=== PATIENT | female | born 1990 | race Caucasian/White ===

== ENCOUNTER → 2016-05-29 | Outpatient (CLI) | payer OTHER, MEDICAID ==
[~2016-05-29] MED LIST: ALPR0.25 PO; DOCU100C37 PO; FLUO40CA12 PO; IBUP-1780 PO; IPRA4AER IH; IRON18TA PO; ONDN4T PO; OXYC-465 PO; PREN1TAB86 PO; SULF-222 PO
--- OUTSIDE RECORDS SUMMARY | 2016-05-29 15:30 | XMS REPORT | Continuity of Care Document ---
Author Author [facility] Address Unknown Phone Unavailable Allergies Active Description Code Type Severity Reaction Onset Reported/Identified Relationship to Patient Clinical Status Yes No Known Drug Allergies [id number] Drug Allergy Unknown N/ A 02/13/2013 Medications Problems Date Dx Coded Attending Type Code Diagnosis Diagnosed By 02/12/2012 THAI DAMON MD 465.9 UPPER RESPIRATORY INFECTION 02/12/2012 THAI DAMON MD 787.01 nausea with vomiting 02/12/2012 GEMMA GEE DO 465.9 UPPER RESPIRATORY INFECTION 02/12/2012 GEMMA GEE DO 787.01 nausea with vomiting 02/12/2012 GEMMA GEE DO 465.9 UPPER RESPIRATORY INFECTION 02/12/2012 GEMMA GEE DO 787.01 nausea with vomiting 02/13/2013 LUIS ARMANDO [employer] [employer] Ot 599.0 URIN TRACT INFECTION NOS 02/13/2013 LUIS ARMANDO [place] [employer] Ot 787.01 NAUSEA WITH VOMITING 08/12/2013 GEMMA GEE DO 729.5 PAIN IN LIMB 07/06/2015 RICHMOND CROSS DONT L Ot 789.01 ABDOMINAL PAIN, RIGHT UPPER QUADRANT 07/06/2015 COSENS KENNY FLORIAN L Ot 807.00 FRACTURE RIB NOS-CLOSED 07/06/2015 COSENS KENNY FLORIAN L Ot E928.9 ACCIDENT NOS 07/09/2015 SIVAKUMAR CALDERÓN MD Ot O28.8 OTHER ABNORMAL FINDINGS ON SCR 07/11/2015 COSENS DO FLORIAN L Ot 789.01 ABDOMINAL PAIN, RIGHT UPPER QUADRANT 07/11/2015 COSENS DO FLORIAN L Ot 807.00 FRACTURE RIB NOS-CLOSED 07/11/2015 COSENS DO FLORIAN L Ot E928.9 ACCIDENT NOS 07/11/2015 SIVAKUMAR CALDERÓN MD Ot O28.8 OTHER ABNORMAL FINDINGS ON SCR 07/13/2015 SIVAKUMAR CALDERÓN MD Ot J45.909 UNSPECIFIED ASTHMA, UNCOMPLICATED 07/13/2015 SIVAKUMAR CALDERÓN MD, Ot O13.3 GESTATIONAL HTN W/O SIGNIFICANT PROTEINU 07/13/2015 SIVAKUMAR CALDERÓN MD, Ot O24.410 GESTATIONAL DIABETES MELLITUS IN PREGNAN 07/13/2015 SIVAKUMAR CALDERÓN MD, Ot O32.3XX0 MATERNAL CARE FOR FACE, BROW AND CHIN IA 07/13/2015 SIVAKUMAR CALDERÓN MD, Ot O62.2 OTHER UTERINE INERTIA 07/13/2015 SIVAKUMAR CALDERÓN MD, Ot O99.52 DISEASES OF THE RESPIRATORY SYSTEM COMPL 07/13/2015 SIVAKUMAR CALDERÓN MD, Ot Z37.0 SINGLE LIVE 07/13/2015 SIVAKUMAR CALDERÓN MD, Ot Z3A.38 38 WEEKS GESTATION OF 07/18/2015 SIVAKUMAR CALDERÓN MD, Ot O28.8 OTHER ABNORMAL FINDINGS ON SCR Procedures Code [place] [address] XRAY ANKLE L, 2 VIEW 08/12/2013 87936 XRAY FOOT LEFT COMP MIN 3 VIEWS 08/12/2013 [id number] 07/11/2015 [id number] 07/11/2015 Results Encounters ACCT No. Visit Date/Time Discharge Status Pt. Type Provider Facility Loc./Unit Complaint [id number] 08/12/2013 08:15:00 08/12/2013 23: 59:59 CLS Outpatient GEMMA GEE DO [id number] 07/06/2013 16:11:00 07/06/2013 23: 59:59 CLS Outpatient GEMMA GEE DO [id number] 02/12/2012 10:59:00 02/12/2012 23: 59:59 CLS Outpatient MARISOL FONTAINE, THAI
[2016-05-29 15:55] LABS: PROTEIN/CREATININE RATIO 0.28
== END ==
LOC: WSo 15:27
PROVIDERS: ATTEND Obstetrics & Gynecology
DX: O14.03 Mild to moderate pre-eclampsia, third trimester (principal)
CPT/HCPCS: 82570; 84156

== ENCOUNTER → 2016-06-12 | Outpatient (CLI) | payer OTHER, MEDICAID ==
[2016-06-12 14:59] LABS: PROTEIN/CREATININE RATIO 0.24
== END ==
LOC: LAB 14:28
PROVIDERS: ATTEND Obstetrics & Gynecology
DX: O28.8 Other abnormal findings on antenatal screening of mother (principal)
CPT/HCPCS: 82570; 84156

== ENCOUNTER → 2016-06-19 | Outpatient (CLI) | payer OTHER, MEDICAID ==
[2016-06-19 15:59] LABS: PROTEIN/CREATININE RATIO 0.18
== END ==
LOC: LABNPT 14:38
PROVIDERS: ATTEND Obstetrics & Gynecology
DX: O28.8 Other abnormal findings on antenatal screening of mother (principal)
CPT/HCPCS: 82570; 84156

== ENCOUNTER 2016-06-23 14:47 | Inpatient (IN) | payer OTHER, MEDICAID ==
[~2016-06-23] VITALS: Ht 167.6 cm; Wt 97.2 kg
[~2016-06-23 14:47] MED LIST changes: -ALPR0.25 PO; -FLUO40CA12 PO; -IRON18TA PO
[2016-06-23 15:43] LABS: BASOPHILS # (AUTO) 0.1 10^3/uL (0.0-0.1); BASOPHILS % (AUTO) 0 % (0-10); EOSINOPHILS # (AUTO) 0.1 10^3/uL (0.0-0.3); EOSINOPHILS % (AUTO) 1 % (0-10); LYMPHOCYTES # (AUTO) 2.1 X 10^3 (1.0-4.0); LYMPHOCYTES % (AUTO) 18 % (12-44); MEAN CORPUSCULAR HEMOGLOBIN 22 PG (25-34); MEAN CORPUSCULAR HGB CONC 31 G/DL (32-36); MEAN CORPUSCULAR VOLUME 73 FL (80-99); MEAN PLATELET VOLUME 10.4 FL (7.4-10.4); MONOCYTES # (AUTO) 1.1 X 10^3 (0.0-1.0); MONOCYTES % (AUTO) 9 % (0-12); NEUTROPHILS # (AUTO) 8.5 X 10^3 (1.8-7.8); NEUTROPHILS % (AUTO) 72 % (42-75); PLATELET COUNT 303 10^3/uL (130-400); RED BLOOD COUNT 4.29 10^6/uL (4.35-5.85); RED CELL DISTRIBUTION WIDTH 17.3 % (10.0-14.5); WHITE BLOOD COUNT 11.8 10^3/uL (4.3-11.0)
[2016-06-23] MEDS ORDERED: METOCLOPRAMIDE INJ 10 MG/2 ML (REGLAN) IV ONE (15:45)
[2016-06-23] MEDS ORDERED: metroNIDAZOLE 500MG/100ML IVPB 100 ML IV ONE ×2 (15:45→16:15)
[2016-06-23] MEDS ORDERED: CATHETER FLUSH 10 ML SYR IV PRN (15:45)
[2016-06-23] MEDS ORDERED: FAMOTIDINE 20MG/2ML IV (PEPCID) IV ONE (15:45)
[2016-06-23] MEDS ORDERED: ceFAZolin 2 GM/50 ML NS 50 ML IV ONE (15:45)
[2016-06-23] MEDS ORDERED: CITRIC ACID/SOB CIT (BICITRA) 30 ML UDC PO ONE (15:45)
[2016-06-23] MEDS ORDERED: D5 LR IV SOLUTION 1,000 ML IV SCH (16:04)
[2016-06-23] MEDS ORDERED: OXYTOCIN/NORMAL SALINE 500 ML IV SCH (16:07)
[2016-06-23] MEDS ORDERED: LACTATED RINGERS 1,000 ML IV ONE (16:08)
[2016-06-23] MEDS ORDERED: fentaNYL INJECTION 100 MCG/2 ML AMP ONE (16:09)
[2016-06-23] MEDS ORDERED: OXYTOCIN/NORMAL SALINE 500 ML IV ONE ×2 (16:09→17:24)
[2016-06-23] MEDS ORDERED: ceFAZolin INJECTION 2,000 MG in NS (IVPB) 50 ML IV ONE (16:15)
[2016-06-23] MEDS ORDERED: D5 LR IV SOLUTION 1,000 ML IV ONE (16:15)
[2016-06-23] MEDS ORDERED: MEASLES,MUMPS,RUBELLA 1 EA INJ SC ONE (16:15)
[2016-06-23] MEDS ORDERED: MEPERIDINE (DEMEROL) INJ 100 MG/ML IM PRN (16:15)
[2016-06-23] MEDS ORDERED: PROMETHAZINE INJ 25 MG/ML (PHENERGAN) AMP IM PRN (16:15)
[2016-06-23] MEDS ORDERED: TETANUS,DIPTH,PERTUSS P/F (BOOSTRIX) 0.5 ML VIAL IM ONE (16:15)
--- NOTE | 2016-06-23 16:20 | History & Physical ---
History and Physical patient is a 25-year-old resection 1 white female with an EDC of 4 2017 based on a 30 week ultrasound. She presented for late care at 30 weeks gestation. She was found that time to have severe oligohydramnios, a markedly dilated urinary bladder and megaureter bilaterally. she was seen in consultation by Dr. Mclain high-risk OB in [place]. 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 Baby is expected to have dysplastic lungs due to the oligohydramnios. Delivery prognosis is exceedingly poor. The patient has met with Dr. Leyva, her bailing machine operator, the tentative plan to provide comfort care for the baby was born. GBS culture done after 35 weeks gestation was negative. She denies rupture membranes or bleeding. Allergies are none medications are Zantac and vitamins iron sulfate albuterol and Prozac Medical history, past surgical history, obstetric history, family history, and social histories are per the antepartum record HEENT exam is normal Neck is supple no lymphadenopathy no thyromegaly Abdomen is gravid soft nontender nondistended Extremities show no clubbing cyanosis. There is no Homans sign. There is some pretibial pitting edema that is normal. Pelvic exam is deferred Laboratory Tests Test 06/23/16 15:18 Range/Units White Blood Count 11.8 H 4.3-11.0 10^3/uL Red Blood Count 4.29 L 4.35-5.85 10^6/uL Hemoglobin 9.5 L 11.5-16.0 G/DL Hematocrit 31 L 35-52 % Mean Corpuscular Volume 73 L 80-99 FL Mean Corpuscular Hemoglobin 22 L 25-34 PG Mean Corpuscular Hemoglobin Concent 31 L 32-36 G/DL Red Cell Distribution Width 17.3 H 10.0-14.5 % Platelet Count 303 130-400 10^3/uL Mean Platelet Volume 10.4 7.4-10.4 FL Neutrophils (%) (Auto) 72 42-75 % Lymphocytes (%) (Auto) 18 12-44 % Monocytes (%) (Auto) 9 0-12 % Eosinophils (%) (Auto) 1 0-10 % Basophils (%) (Auto) 0 0-10 % Neutrophils # (Auto) 8.5 H 1.8-7.8 X 10^3 Lymphocytes # (Auto) 2.1 1.0-4.0 X 10^3 Monocytes # (Auto) 1.1 H 0.0-1.0 X 10^3 Eosinophils # (Auto) 0.1 0.0-0.3 10^3/uL Basophils # (Auto) 0.1 0.0-0.1 10^3/uL lab work is as noted Assessment and plan term at 37-3/7 weeks' gestation in a patient with previous and with what are expected to be lethal anomalies. Patient is aware. She is ready to proceed with repeat delivery. Dr. Leyva will be on hand for the delivery as well support and management as is warranted and indicated by the baby. 37-3/7 weeks' gestation with severe oligohydramnios and dysplastic kidneys and previous delivery Allergies and Home Medications Allergies Coded Allergies: No Known Drug Allergies (Unverified , 02/13/13) Home Medications Albuterol/Ipratropium 4 Gm Aero, 2 PUFF IH NEEDED PRN for AIR HUNGER, ( Reported) Docusate Sodium 100 Mg Capsule, 100 MG PO BID, #60 Prescribed by: SIVAKUMAR HUITRON on 07/12/15 0732 Ibuprofen 800 Mg Tablet, 800 MG PO Q6H, #60 Prescribed by: SIVAKUMAR HUITRON on 07/12/15 0732 Oxycodone HCl/Acetaminophen 1 Each Tablet, 1-2 TAB PO Q4H PRN for PAIN, #60 Prescribed by: SIVAKUMAR HUITRON on 07/12/15 0732 Vit W-Ca,Fe,FA(<1 mg) 1 Each Tablet, 1 EACH PO DAILY, (Reported) Clinical Quality Measures DVT/VTE Risk/Contraindication: Risk Factor Score Per Nursin RFS Level Per Nursing on Admit: 1=Low/No VTE PPX SIVAKUMAR CALDERÓN MD Jun 23, 2016 4:20 pm
[2016-06-23] MEDS ORDERED: BUPIVACAINE SPINAL 0.75% (SENSORCAINE) 2 ML AMP ONE (16:51)
[2016-06-23] MEDS ORDERED: ONDANSETRON 4 MG/2 ML (SDV) Z0FRAN ONE (17:06)
[2016-06-23] MEDS ORDERED: NALOXONE 0.4 MG/ML 1 ML (NARCAN) VIAL IV PRN (17:45)
[2016-06-23] MEDS ORDERED: diphenhydrAMINE 50 MG/ML INJ (BENADRYL) IV PRN (17:45)
[2016-06-23] MEDS ORDERED: ONDANSETRON 4 MG/2 ML (SDV) Z0FRAN IV PRN (17:45)
[2016-06-23 19:44] VITALS: BP 129/85
[2016-06-23] MEDS: oxyCODONE/APAP 10/325MG (PERCOCET 10) TABLET PO PRN (19:46)
[2016-06-23] MEDS ORDERED: ALPR0.25 PO (21:08)
[2016-06-23] MEDS ORDERED: FLUO40CA12 PO (21:08)
[2016-06-23] MEDS ORDERED: IRON18TA PO (21:08)
[2016-06-23] MEDS: DOCUSATE SODIUM 100 MG (COLACE) CAP PO SCH (21:21)
[2016-06-23] MEDS: KETOROLAC 30 MG/ML VIAL IVP SCH (23:54)
[2016-06-24] VITALS: BP 129/86
[2016-06-24] MEDS: oxyCODONE/APAP 10/325MG (PERCOCET 10) TABLET PO PRN ×3 (00:15→09:45)
[2016-06-24 04:30] VITALS: BP 128/77
[2016-06-24] MEDS: KETOROLAC 30 MG/ML VIAL IVP SCH (06:00)
--- NOTE | 2016-06-24 07:32 | Progress Note-Standard ---
Standard Progress Note Progress Notes/Assess & Plan Progress/Assessment & Plan patient is without complaint. She is ambulating, voiding, tolerating by mouth well, has good pain control. She denies chest pain, denies shortness of breath , denies nausea vomiting, denies headache. This patient's baby less than an hour after as had been anticipated due to its lethal anomalies Vital Signs Date Time Temp Pulse Resp B/P (MAP) Pulse Ox O2 Delivery O2 Flow Rate FiO2 06/24/16 04:30 97.5 71 18 128/77 99 Room Air 06/24/16 00:00 97.0 82 18 129/86 97 Room Air 06/23/16 19:44 97.9 89 18 129/85 98 Room Air I & O 06/24/16 07:00 Intake Total 2950 ml Output Total 950 ml Balance 2000 ml Vital signs are stable. Patient afebrile. Abdomen is benign. Fundus is firm below the umbilicus and nontender. Incision is clean dry and intact. Extremities show no clubbing cyanosis. No Homans sign. There is some pretibial pitting edema that is normal. Assessment and plan postoperative day number 1 status post repeat . Patient is doing well. Her baby shortly after delivery as was expected. Plan is for routine convalescence care today and discharge home tomorrow SIVAKUMAR CALDERÓN MD Jun 24, 2016 7:32 am
[2016-06-24] MEDS ORDERED: OXYC-465 PO (07:38)
[2016-06-24] MEDS ORDERED: IBUP-1780 PO (07:38)
[2016-06-24] MEDS ORDERED: DOCU100C37 PO (07:38)
--- NOTE | 2016-06-24 07:40 | Discharge Instructions ---
Discharge Instructions Discharge Medications New, Converted or Re-Newed RX: RX on Chart Patient Instructions Patient Instructions: as directed Return to The Hospital For: as directed Activity & Diet Discharge Diet: No Restrictions Activity as Tolerated: No Orders-Post D/C & Referrals Follow Up Appt: RTC 1 week for incision check. Call to make follow up appt. for patient in 4 to 6 weeks. Wound Care: Remove kelsi, apply benzoin and steri strips. Activity Per routine post instructions. Diet as tolerated Patient may shower or tub bathe as desired. Continue home meds SIVAKUMAR CALDERÓN MD Jun 24, 2016 7:40 am
[2016-06-24 09:20] VITALS: BP 110/76
[2016-06-24] MEDS: DOCUSATE SODIUM 100 MG (COLACE) CAP PO SCH ×2 (09:44→20:03)
--- NOTE | 2016-06-24 11:08 | OPERATIVE REPORT ---
PROCEDURE PHYSICIAN: SIVAKUMAR CALDERÓN DATE OF PROCEDURE: 06/23/2016 DATE OF DICTATION: 06/23/2016 PREOPERATIVE DIAGNOSIS: 37-3/7 weeks gestation with severe oligohydramnios, renal agenesis, urinary retention, and megaureter bilaterally. POSTOPERATIVE DIAGNOSIS: Same OPERATIVE PROCEDURE: Repeat low transverse delivery of a viable male infant with Apgars of 4 and 3 at one and five minutes respectively and with a weight of 5 pounds 10 ounces. Cord arterial blood pH was 7.33. OPERATIVE DESCRIPTION: With the patient in supine position, under satisfactory spinal anesthesia, she was prepped and draped usual fashion for abdominal surgery. A Stevens cath was placed in the urinary bladder and left to dependent drainage. A repeat Pfannenstiel incision was made through skin with scalpel and the patient's abdomen entered in the usual manner. Bladder retractor placed in position, clean scalpel used to make a 4 cm hysterotomy incision transversely that was extended by blunt dissection. Careful entry into the uterus was achieved as there was no amniotic fluid. The infant was vertex and was delivered via the uterine incision in the usual manner. The umbilical cord was doubly clamped and cut and passed to Dr. Leyva, the manager of quality in attendance for delivery. Cord bloods were obtained including blood for genetic studies at the request of Dr. Leyva. The placenta then delivered spontaneously Navarro. It was normal with a 3 vessel cord. The uterus was then exteriorized, interior wiped clean with a wet laparotomy sponge. Uterine incision then closed with running lock suture of 2-0 Vicryl. Hemostasis was complete. The uterus was returned to the abdominal cavity. All blood clot and debris removed from the abdominal cavity. With sponge and needle counts correct and hemostasis assured, the anterior parietal peritoneum was closed with a running suture of 2-0 Vicryl. Rectus muscles were closed with that suture well. The rectus fascia was closed with 2-0 Vicryl. Subcutaneous tissue with 2-0 Vicryl and the skin was stapled. Sponge and needle counts were correct at the end of procedure. Estimated blood loss for procedure around 500 mL the patient tolerated the procedure well and was transferred to the recovery room in stable condition. The infant had been allowed to stay with the mother from shortly after delivery until time when the patient was transferred as a slight expectancy of the infant was quite limited due to its likely lethal anomalies. Job ID: [id number] Dictated Date: 06/23/2016 17:23:45 Automatic Folder Seamer Date: 06/24/2016 10:58:00 / charley JOYA
[2016-06-24 12:15] VITALS: BP 121/80
--- NOTE | 2016-06-24 12:31 | Anesthesia-Regional Post-Op ---
Regional Patient Condition Mental Status: Alert, Oriented x3 Circulation: Same as Pre-Op Headache: Absent Sensation: Full Recovery Motor Block: Absent Post Op Complications Complications None Follow Up Care/Instructions Patient Instructions None needed. Anesthesia/Patient Condition Patient is doing well, no complaints, stable vital signs, no apparent adverse anesthesia problems. No complications reported per nursing. LUIS JACK CRNA Jun 24, 2016 12:31
[2016-06-24] MEDS: IBUPROFEN 800 MG (MOTRIN) TAB PO SCH ×3 (12:47→18:51)
[2016-06-24 18:06] VITALS: BP 137/83
[2016-06-24 20:00] VITALS: BP 132/74
[2016-06-25 00:50] VITALS: BP 126/79
[2016-06-25] MEDS: IBUPROFEN 800 MG (MOTRIN) TAB PO SCH ×2 (01:02→08:16)
--- NOTE | 2016-06-25 07:48 | Progress Note-Standard ---
Standard Progress Note Progress Notes/Assess & Plan Progress/Assessment & Plan patient is without complaint. She is ambulating, voiding, tolerating by mouth well, has good pain control. She denies chest pain, denies shortness of breath , denies nausea vomiting, denies headache. This patient's baby less than an hour after as had been anticipated due to its lethal anomalies Vital Signs Date Time Temp Pulse Resp B/P (MAP) Pulse Ox O2 Delivery O2 Flow Rate FiO2 06/24/16 04:30 97.5 71 18 128/77 99 Room Air 06/24/16 00:00 97.0 82 18 129/86 97 Room Air 06/23/16 19:44 97.9 89 18 129/85 98 Room Air I & O 06/24/16 07:00 Intake Total 2950 ml Output Total 950 ml Balance 2000 ml Vital signs are stable. Patient afebrile. Abdomen is benign. Fundus is firm below the umbilicus and nontender. Incision is clean dry and intact. Extremities show no clubbing cyanosis. No Homans sign. There is some pretibial pitting edema that is normal. Assessment and plan postoperative day number 1 status post repeat . Patient is doing well. Her baby shortly after delivery as was expected. Plan is for routine convalescence care today and discharge home tomorrow June 25, 2016 Patient is without complaint. She is ambulating, voiding, tolerating by mouth well, has good pain control, and is requesting discharge home. Vital Signs Date Time Temp Pulse Resp B/P (MAP) Pulse Ox O2 Delivery O2 Flow Rate FiO2 06/25/16 00:50 97.2 92 18 126/79 06/24/16 20:00 97.5 99 18 132/74 99 06/24/16 18:06 98.2 89 20 137/83 99 Room Air 06/24/16 12:15 98.4 85 20 121/80 98 Room Air 06/24/16 09:20 97.3 67 20 110/76 98 Room Air I & O 06/25/16 07:00 Output Total 1500 ml Balance -1500 ml Vital signs are stable. Patient is afebrile. Fundus is firm below the umbilicus and nontender. The incision is clean dry and intact. Extremities show no clubbing cyanosis. There is no Homans sign. There is some pretibial pitting edema that is normal. Assessment and plan postoperative day number 2 status post repeat at 37+ weeks gestation. Her baby was non-ablating anomalies and the baby less than an hour after expected. The patient is doing well and was ready for discharge home. We'll plan for discharge follow-up in clinic Final Diagnosis 37-3/7 weeks repeat SIVAKUMAR CALDERÓN MD Jun 25, 2016 7:48 am
[2016-06-25] MEDS: DOCUSATE SODIUM 100 MG (COLACE) CAP PO SCH (08:16)
[2016-06-25 08:20] VITALS: BP 127/81
== END 2016-06-25 11:15 | disposition home or self-care (01) | DRG 765 ==
LOC: LDRP 14:47
PROVIDERS: ADMIT Obstetrics & Gynecology; ATTEND Obstetrics & Gynecology
PROC: 10D00Z1 Extraction of Products of Conception, Low, Open Approach (ICD-10-PCS; principal; 2016-06-23 16:41)
DX: O41.03X0 Oligohydramnios, third trimester, not applicable or unspecified (principal); Q60.2 Renal agenesis, unspecified; O26.833 Pregnancy related renal disease, third trimester; O35.1XX0 Maternal care for (suspected) chromosomal abnormality in fetus, not applicable or unspecified; R33.9 Retention of urine, unspecified; N28.82 Megaloureter; O34.211 Maternal care for low transverse scar from previous cesarean delivery; Z3A.37 37 weeks gestation of pregnancy; Z37.0 Single live birth
CPT/HCPCS: 36415; 85025; 86850; 86900; 86901; 88307

== ENCOUNTER → 2017-11-19 | Outpatient (CLI) | payer OTHER, MEDICAID ==
[~2017-11-19] MED LIST changes: +ALPR0.25 PO; +FLUO40CA12 PO; +IRON18TA PO
== END ==
LOC: LABNPT 15:58
PROVIDERS: ATTEND Obstetrics & Gynecology
DX: O14.03 Mild to moderate pre-eclampsia, third trimester (principal)
CPT/HCPCS: 82570; 84156

== ENCOUNTER → 2017-12-18 | Outpatient (CLI) | payer MEDICAID, OTHER | LOC: LABNPT 10:04 | PROVIDERS: ATTEND Obstetrics & Gynecology | DX: O14.03 Mild to moderate pre-eclampsia, third trimester (principal) | CPT/HCPCS: 82570; 84156 ==

== ENCOUNTER → 2017-12-21 | Outpatient (CLI) | payer MEDICAID, OTHER | LOC: LABNPT 07:00 | PROVIDERS: ATTEND Obstetrics & Gynecology | DX: O14.03 Mild to moderate pre-eclampsia, third trimester (principal) | CPT/HCPCS: 82570; 84156 ==

== ENCOUNTER 2017-12-26 08:04 | Outpatient (CLI) | payer MEDICAID ==
[~2017-12-26] VITALS: Ht 167.6 cm; Wt 106.1 kg
[2017-12-26 08:25] VITALS: BP 134/82
[2017-12-26 08:30] VITALS: BP 140/82
[2017-12-26 08:40] VITALS: BP 134/77
[2017-12-26 09:00] VITALS: BP 133/74
[2017-12-26] MEDS ORDERED: FLU QUADRIvalent (5+ YOA) 2018-2019 (AFLURIA) 0.5 ML IM ONE (09:00)
[2017-12-26] MEDS ORDERED: D5 LR IV SOLUTION 1,000 ML IV ONE ×2 (09:49→10:00)
[2017-12-26] MEDS ORDERED: LOPERAMIDE 2 MG (IMODIUM) CAP PO NR (10:00)
[2017-12-26] MEDS ORDERED: LOPERAMIDE 2 MG (IMODIUM) CAP PO PRN (10:00)
[2017-12-26] MEDS ORDERED: ONDANSETRON 4 MG/2 ML (SDV) Z0FRAN IVP NR (10:00)
[2017-12-26 10:48] LABS: MEAN PLATELET VOLUME 9.9 FL (7.4-10.4); RED BLOOD COUNT 3.91 10^6/uL (4.35-5.85); RED CELL DISTRIBUTION WIDTH 16.8 % (10.0-14.5); WHITE BLOOD COUNT 9.2 10^3/uL (4.3-11.0)
[2017-12-26 11:07] LABS: ALANINE AMINOTRANSFERASE 17 U/L (0-55); ALBUMIN 3.4 GM/DL (3.2-4.5); ALKALINE PHOSPHATASE 105 U/L (40-136); BILIRUBIN,TOTAL 0.4 MG/DL (0.1-1.0); BUN/CREATININE RATIO 9; CARBON DIOXIDE 18 MMOL/L (21-32); CHLORIDE 107 MMOL/L (98-107); CREATININE SERUM 0.56 MG/DL (0.60-1.30); GFR ESTIMATED > 60; GLUCOSE 82 MG/DL (70-105); POTASSIUM 3.5 MMOL/L (3.6-5.0); SODIUM 136 MMOL/L (135-145); TOTAL PROTEIN 6.6 GM/DL (6.4-8.2)
[2017-12-26 11:09] LABS: BILIRUBIN,URINE NEGATIVE (NEGATIVE); CLARITY,URINE CLEAR; COLOR,URINE YELLOW; GLUCOSE, URINE (UA) NEGATIVE (NEGATIVE); KETONES,URINE NEGATIVE (NEGATIVE); LEUKOCYTE ESTERASE ,URINE 1+ (NEGATIVE); NITRITE,URINE NEGATIVE (NEGATIVE); PH,URINE 8 (5-9); PROTEIN,URINE 1+ (NEGATIVE); UROBILINOGEN,URINE NORMAL (NORMAL)
[2017-12-26 11:19] LABS: BACTERIA,URINE NEGATIVE /HPF; WBC,URINE 0-2 /HPF
== END 2017-12-26 12:50 | disposition home or self-care (01) ==
LOC: LDRP 08:04 → WSo 08:04
PROVIDERS: ATTEND Obstetrics & Gynecology
DX: O21.2 Late vomiting of pregnancy (principal); O99.89 Other specified diseases and conditions complicating pregnancy, childbirth and the puerperium; R19.7 Diarrhea, unspecified; Z3A.36 36 weeks gestation of pregnancy
CPT/HCPCS: 36415; 80053; 81000; 82570; 83615; 84156; 85027; 87088; 96361; 96374; 99213

== ENCOUNTER → 2017-12-28 | Outpatient (CLI) | payer MEDICAID | LOC: LABNPT 11:10 | PROVIDERS: ATTEND Obstetrics & Gynecology | DX: O14.03 Mild to moderate pre-eclampsia, third trimester (principal) | CPT/HCPCS: 82570; 84156 ==

== ENCOUNTER → 2018-01-06 | Outpatient (CLI) | payer MEDICAID ==
[~2018-01-06] MED LIST changes: +DOCU-143 PO; +FLUO20CA42 PO; +HYDR-3923 PO; +OXYC1TAB12 PO; +PREN-8 PO
== END ==
LOC: LABNPT 11:45
PROVIDERS: ATTEND Obstetrics & Gynecology
DX: O14.03 Mild to moderate pre-eclampsia, third trimester (principal)
CPT/HCPCS: 82570; 84156

== ENCOUNTER 2018-01-08 10:44 | Outpatient (CLI) | payer MEDICAID ==
[~2018-01-08] VITALS: Ht 167.6 cm; Wt 105.7 kg
[~2018-01-08 10:44] MED LIST changes: -DOCU-143 PO; -FLUO20CA42 PO; -HYDR-3923 PO; -OXYC1TAB12 PO; -PREN-8 PO
[2018-01-08] MEDS ORDERED: PREN-8 PO (11:01)
[2018-01-08] MEDS ORDERED: HYDR-3923 PO (11:01)
[2018-01-08] MEDS ORDERED: FLUO20CA42 PO (11:01)
[2018-01-08 11:04] VITALS: BP 139/89
== END 2018-01-08 12:05 | disposition home or self-care (01) ==
LOC: PREOP 10:44
PROVIDERS: ATTEND Obstetrics & Gynecology
DX: Z01.818 Encounter for other preprocedural examination (principal)
CPT/HCPCS: 87081

== ENCOUNTER 2018-01-13 12:15 | Inpatient (IN) | payer MEDICAID ==
[~2018-01-13] VITALS: Ht 167.6 cm; Wt 106.4 kg
[~2018-01-13 12:15] MED LIST changes: +CITRIC ACID/SOB CIT (BICITRA) 30 ML UDC ONE; +FAMOTIDINE 20MG/2ML IV (PEPCID) ONE; +FLUO20CA42 PO; +HYDR-3923 PO; +LACTATED RINGERS 2,000 ML IV ONE; +METOCLOPRAMIDE INJ 10 MG/2 ML (REGLAN) ONE; +PREN-8 PO; +ceFAZolin 2 GM IV Premixed 50 ML ONE; +metroNIDAZOLE 500MG/100ML IVPB 100 ML ONE
[2018-01-13 12:18] VITALS: BP 148/85
[2018-01-13] MEDS ORDERED: LACTATED RINGERS 1,000 ML IV PRN ×2 (12:28)
[2018-01-13] MEDS ORDERED: FAMOTIDINE 20MG/2ML IV (PEPCID) IV ONE (12:30)
[2018-01-13] MEDS ORDERED: METOCLOPRAMIDE INJ 10 MG/2 ML (REGLAN) IV ONE (12:30)
[2018-01-13] MEDS ORDERED: CITRIC ACID/SOB CIT (BICITRA) 30 ML UDC PO ONE (12:30)
[2018-01-13] MEDS ORDERED: CATHETER FLUSH 10 ML SYR IV PRN (12:30)
[2018-01-13 12:43] LABS: BASOPHILS % (AUTO) 0 % (0-10); EOSINOPHILS # (AUTO) 0.1 10^3/uL (0.0-0.3); EOSINOPHILS % (AUTO) 1 % (0-10); HEMATOCRIT 31 % (35-52); HEMOGLOBIN 9.4 G/DL (11.5-16.0); LYMPHOCYTES # (AUTO) 1.6 X 10^3 (1.0-4.0); LYMPHOCYTES % (AUTO) 16 % (12-44); MEAN CORPUSCULAR HEMOGLOBIN 22 PG (25-34); MEAN CORPUSCULAR HGB CONC 30 G/DL (32-36); MEAN CORPUSCULAR VOLUME 72 FL (80-99); MEAN PLATELET VOLUME 10.7 FL (7.4-10.4); MONOCYTES # (AUTO) 0.8 X 10^3 (0.0-1.0); MONOCYTES % (AUTO) 8 % (0-12); NEUTROPHILS % (AUTO) 76 % (42-75); PLATELET COUNT 289 10^3/uL (130-400); RED BLOOD COUNT 4.28 10^6/uL (4.35-5.85); RED CELL DISTRIBUTION WIDTH 17.7 % (10.0-14.5); WHITE BLOOD COUNT 10.6 10^3/uL (4.3-11.0)
[2018-01-13] MEDS ORDERED: ceFAZolin 2 GM IV Premixed 50 ML IV ONE ×3 (12:45→13:00)
[2018-01-13] MEDS ORDERED: metroNIDAZOLE 500MG/100ML IVPB 100 ML IV ONE ×2 (12:45→13:00)
[2018-01-13] MEDS ORDERED: D5 LR IV SOLUTION 1,000 ML IV SCH (12:55)
[2018-01-13] MEDS ORDERED: BUPIVACAINE SPINAL 0.75% (SENSORCAINE) 2 ML AMP ONE (12:58)
[2018-01-13] MEDS ORDERED: fentaNYL INJECTION 100 MCG/2 ML AMP ONE (12:58)
[2018-01-13] MEDS ORDERED: OXYTOCIN/NORMAL SALINE 500 ML IV ONE ×2 (13:00→15:17)
[2018-01-13] MEDS ORDERED: FLU QUADRIvalent (5+ YOA) 2018-2019 (AFLURIA) 0.5 ML IM ONE (13:30)
[2018-01-13] MEDS ORDERED: ROPIVACAINE 5MG/ML 30ML VIAL ONE (13:33)
[2018-01-13] MEDS ORDERED: LIDOCAINE PF 2% 5 ML (XYLOCAINE) VIAL ONE (13:33)
[2018-01-13] MEDS ORDERED: DEXAMETHASONE 10 MG/ML (DECADRON) 1 ML VIAL ONE (13:46)
[2018-01-13] MEDS ORDERED: KETOROLAC 30 MG/ML VIAL ONE (13:46)
[2018-01-13] MEDS ORDERED: ONDANSETRON 4 MG/2 ML (SDV) Z0FRAN ONE (13:46)
--- NOTE | 2018-01-13 14:03 | History & Physical ---
History and Physical Date Seen by Provider: Jan 13, 2018 Time Seen by Provider: 14:01 This patient is a 27-year-old LC 1 2 white female with an EDC of 11 1119 putting her now at 38-3/7 weeks. Her is complicated by PIH. She also has mild polyhydramnios. She is admitted now for repeat delivery. GBS culture was negative. Allergies are none Medications are vitamins Past medical history, past surgical history, obstetric history, family history, social histories are per the antepartum record HEENT exam is normal Neck is supple no lymphadenopathy no thyromegaly Abdomen is gravid soft nontender nondistended Extreme show no clubbing cyanosis. Is no Homans sign. Pelvic exam is deferred Laboratory Tests 01/13/18 12:28 Assessment and plan term at 38-3/7 weeks gestation admitted for repeat delivery due to PIH and mild oligohydramnios. Allergies and Home Medications Allergies Coded Allergies: No Known Drug Allergies (Unverified , 01/08/18) Home Medications Albuterol/Ipratropium 4 Gm Aero, 2 PUFF IH NEEDED PRN for AIR HUNGER, ( Reported) Fluoxetine HCl 20 Mg Capsule, 20 MG PO DAILY, (Reported) Hydralazine HCl 25 Mg Tablet, 25 MG PO PRN PRN for ANXIETY, (Reported) Vit W-Ca,Fe,FA(<1 mg) 1 Each Tablet, 1 EACH PO DAILY, (Reported) Patient Home Medication List Home Medication List Reviewed: Yes Clinical Quality Measures DVT/VTE Risk/Contraindication: Risk Factor Score Per Nursin RFS Level Per Nursing on Admit: 3=High SIVAKUMAR CALDERÓN MD Jan 13, 2018 2:03 pm
[2018-01-13] MEDS ORDERED: IBUP-1780 PO (14:05)
[2018-01-13] MEDS ORDERED: DOCU-143 PO (14:05)
[2018-01-13] MEDS ORDERED: OXYC1TAB12 PO (14:05)
--- NOTE | 2018-01-13 14:06 | Discharge Instructions ---
Discharge Instructions Discharge Medications New, Converted or Re-Newed RX: RX on Chart Patient Instructions Patient Instructions: As directed Return to The Hospital For: As directed Activity & Diet Activity as Tolerated: No Orders-Post D/C & Referrals Follow Up Appt: RTC 1 week for incision check. Call to make follow up appt. for patient in 4 weeks. Wound Care: Remove kelsi, apply benzoin and steri strips. Activity Per routine post instructions. Please call in RX to patient pharmacy. Diet as tolerated Patient may shower or tub bathe as desired. Continue home meds SIVAKUMAR CALDERÓN MD Jan 13, 2018 2:06 pm
[2018-01-13] MEDS: OXYTOCIN/NORMAL SALINE 500 ML IV SCH ×2 (14:30→19:17)
[2018-01-13] MEDS: KETOROLAC 30 MG/ML VIAL IVP SCH ×2 (14:45→21:31)
[2018-01-13] MEDS ORDERED: ONDANSETRON 4 MG/2 ML (SDV) Z0FRAN IVP PRN ×2 (15:00→15:30)
[2018-01-13] MEDS ORDERED: MEASLES,MUMPS,RUBELLA 1 EA INJ SC ONE (15:00)
[2018-01-13] MEDS ORDERED: MEPERIDINE (DEMEROL) INJ 100 MG/ML IM PRN (15:00)
[2018-01-13] MEDS ORDERED: TETANUS,DIPTH,PERTUSS P/F (BOOSTRIX) 0.5 ML VIAL IM ONE (15:00)
[2018-01-13] MEDS ORDERED: PROMETHAZINE INJ 25 MG/ML (PHENERGAN) AMP IM PRN (15:00)
[2018-01-13] MEDS ORDERED: D5 LR IV SOLUTION 1,000 ML IV ONE (15:05)
[2018-01-13] MEDS ORDERED: METOCLOPRAMIDE INJ 10 MG/2 ML (REGLAN) IV PRN (15:30)
[2018-01-13] MEDS ORDERED: diphenhydrAMINE 50 MG/ML INJ (BENADRYL) IV PRN (15:30)
[2018-01-13] MEDS ORDERED: NALOXONE 0.4 MG/ML 1 ML (NARCAN) VIAL IV PRN ×2 (15:30)
[2018-01-13] MEDS ORDERED: ONDANSETRON 4 MG/2 ML (SDV) Z0FRAN IV PRN (15:30)
[2018-01-13] MEDS ORDERED: morphine INJ 10 MG/ML 1ML (SYR OR VIAL) IVP ONE (15:30)
[2018-01-13] MEDS: oxyCODONE/APAP 10/325MG (PERCOCET 10) TABLET PO PRN ×2 (17:32→22:55)
[2018-01-13 19:35] VITALS: BP 129/69
[2018-01-13] MEDS: DOCUSATE SODIUM 100 MG (COLACE) CAP PO SCH (21:31)
--- NOTE | 2018-01-13 23:43 | OPERATIVE REPORT ---
DATE OF SERVICE: 01/13/2018 PREOPERATIVE DIAGNOSES: Term at 38 and 3/7 weeks gestation with -induced hypertension and mild oligohydramnios and previous . POSTOPERATIVE DIAGNOSES: Term at 38 and 3/7 weeks gestation with -induced hypertension and mild oligohydramnios and previous . OPERATIVE PROCEDURE: Repeat low-transverse delivery of a viable female infant with Apgars of 8 and 9 at 1 and 5 minutes. Expected weight of 6 pounds. Cord blood gas was 7.28 and time of 14:26. OPERATIVE DESCRIPTION: With the patient in the supine position under satisfactory spinal analgesia, she was prepped and draped in usual fashion for abdominal surgery. Stevens catheter was placed in the urinary bladder. A repeat Pfannenstiel incision was made through skin with scalpel. Patient's abdomen entered in the usual manner. Bladder retractor was placed into position and a clean scalpel used to make a 4 cm hysterotomy incision transversely across the lower uterine segment that was extended by blunt dissection as well. A small amount of clear fluid was released on hysterotomy. The incision was extended bluntly and then Barnes forceps were applied to facilitate delivery of a vigorous viable female . had stats as noted above. The infant was bulb suctioned on delivery of the head and again on completion of delivery. Umbilical cord was doubly clamped and cut, and the passed to the pediatric nurse in attendance for the delivery. Cord bloods were obtained. The placenta delivered spontaneously Navarro. It was normal with a 3-vessel cord. The uterus was exteriorized, interior wiped clean with a wet laparotomy sponge. Uterine incision closed with running locked suture of 2-0 Vicryl. Hemostasis was complete. The uterus was returned to the abdominal cavity. All blood clot and debris was removed from the abdominal cavity. Sponge and needle counts correct. Hemostasis assured. Anterior parietal peritoneum was closed with running suture of 2-0 Vicryl. Rectus muscles were closed with that suture. The rectus fascia was closed with 2-0 Vicryl, subcutaneous tissue was closed with 2-0 Vicryl and the skin was stapled. Sponge and needle counts were correct on completion of the procedure. Estimated blood loss was around 600 mL. The patient tolerated the procedure well and was transferred to the recovery room in stable condition. The was taken stable to the full-term nursery. Job ID: [id number] DocumentID: [id number] Dictated Date: 01/13/2018 14:49:30 Panel Gluer Date: 01/13/2018 23:42:56 Dictated By: SIVAKUMAR CALDERÓN MD
[2018-01-14] VITALS: BP 124/87
[2018-01-14] MEDS ORDERED: IBUPROFEN 800 MG (MOTRIN) TAB PO ONE ×2 (03:52→08:25)
[2018-01-14] MEDS: IBUPROFEN 800 MG (MOTRIN) TAB PO SCH ×4 (03:55→21:22)
[2018-01-14 04:00] VITALS: BP 114/75
[2018-01-14] MEDS: KETOROLAC 30 MG/ML VIAL IVP SCH ×2 (04:04→04:05)
[2018-01-14] MEDS: oxyCODONE/APAP 10/325MG (PERCOCET 10) TABLET PO PRN ×6 (05:02→22:53)
--- NOTE | 2018-01-14 07:35 | Anesthesia-Regional Post-Op ---
Regional Patient Condition Mental Status: Alert, Oriented x3 Circulation: Same as Pre-Op Headache: Absent Sensation: Full Recovery Motor Block: Absent Post Op Complications Complications None Follow Up Care/Instructions Patient Instructions None needed. Anesthesia/Patient Condition Patient is doing well, no complaints, stable vital signs, no apparent adverse anesthesia problems. No complications reported per nursing. D/C home per [facility] Criteria: No MINERVA HOOKS CRNA Jan 14, 2018 07:35
--- NOTE | 2018-01-14 07:40 | Progress Note-Standard ---
Standard Progress Note Progress Notes/Assess & Plan Date Seen by a Provider: Jan 14, 2018 Time Seen by a Provider: 07:38 Progress/Assessment & Plan This patient is without complaint. She is ambulating, tolerating oral intake well, has good pain control. Patient has not been able to void and was straight cathetered once since her . Patient denies headache, denies shortness breath, denies nausea vomiting, denies chest pain. Vital Signs 01/14/18 04:00 Temp 98.1 Pulse 85 Resp 20 B/P (MAP) 114/75 (88) Pulse Ox 97 O2 Delivery Room Air Vital signs are stable. Patient is afebrile. The abdomen is benign. The surgical incision is clean dry and intact. Fundus is firm below the umbilicus and nontender. Extreme show clubbing cyanosis. Homans sign. Assessment and plan postoperative day number 1 status post repeat delivery doing well. Plan is routine convalescence care today and consider discharge home tomorrow In my absence of '[place] Rosario and or Missy will be covering SIVAKUMAR CALDERÓN MD Jan 14, 2018 7:40 am
[2018-01-14 07:45] VITALS: BP 129/80
[2018-01-14] MEDS ORDERED: diphenhydrAMINE 25 MG TAB (BENADRYL) PO PRN (08:30)
[2018-01-14] MEDS ORDERED: TETANUS,DIPTH,PERTUSS P/F (BOOSTRIX) 0.5 ML VIAL IM ONE (08:46)
[2018-01-14] MEDS ORDERED: FLU QUADRIvalent (5+ YOA) 2018-2019 (AFLURIA) 0.5 ML IM ONE (08:46)
[2018-01-14] MEDS: DOCUSATE SODIUM 100 MG (COLACE) CAP PO SCH ×2 (09:00→21:22)
[2018-01-14 12:00] VITALS: BP 113/66
[2018-01-14 16:00] VITALS: BP 117/78
[2018-01-14 21:22] VITALS: BP 130/73
[2018-01-15 03:15] VITALS: BP 135/85
[2018-01-15] MEDS: IBUPROFEN 800 MG (MOTRIN) TAB PO SCH ×3 (03:15→15:01)
--- NOTE | 2018-01-15 08:41 | Postpartum Progress Note ---
Note Note Day # 2 Subjective: Covering for Dr. Quiroz who performed RLTCS on 01/13. His patient is without complaints. Ambulating, voiding. Tolerating a regular diet without nausea or vomiting. Normal lochia. Pain is well controlled with oral pain medications. Objective: Vital Sign - Last 24 Hours 01/14/18 01/14/18 01/14/18 01/15/18 12:00 16:00 21:22 03:15 Temp 98.4 97.8 98.1 97.5 Pulse 95 88 94 75 Resp 18 18 18 18 B/P (MAP) 113/66 (82) 117/78 (91) 130/73 (92) 135/85 (102) Pulse Ox 96 99 99 98 O2 Delivery Room Air Room Air Room Air Room Air Intake and Output 01/14/18 01/14/18 01/15/18 15:00 23:00 07:00 Intake Total 1720 ml 800 ml Output Total 1200 ml Balance 520 ml 800 ml Physical Exam: General - Alert and oriented, no apparent distress Abdomen - Soft, appropriately tender to palpation, non-distended, fundus firm at umbilicus Extremities - no edema, negative Kamryn's bilaterally Incision- c/d/i Assessment: POD 2 RLTCS Plan: Routine care. Encourage breast feeding. Encourage ambulation. Ferrous sulfate supplementation. Plan for discharge today Vitals - Labs Vital Signs - I&O Vital Signs Date Time Temp Pulse Resp B/P (MAP) Pulse Ox O2 Delivery O2 Flow Rate FiO2 01/15/18 03:15 97.5 75 18 135/85 (102) 98 Room Air 01/14/18 21:22 98.1 94 18 130/73 (92) 99 Room Air 01/14/18 16:00 97.8 88 18 117/78 (91) 99 Room Air 01/14/18 12:00 98.4 95 18 113/66 (82) 96 Room Air I & O 01/15/18 07:00 Intake Total 2520 ml Output Total 1200 ml Balance 1320 ml Labs Laboratory Tests 01/14/18 12:28: Syphilis Serology Non-Reactive, Hepatitis B Surface Antibody Index >1000.00, Hepatitis Bs Antibody Interpret Immune, HIV (1&2) Ag and Ab Screen Referral Non- Reactive ANETTE MONTENEGRO DO Jan 15, 2018 8:41 am
[2018-01-15 09:29] VITALS: BP 117/74
[2018-01-15] MEDS: DOCUSATE SODIUM 100 MG (COLACE) CAP PO SCH (09:48)
[2018-01-15] MEDS: oxyCODONE/APAP 10/325MG (PERCOCET 10) TABLET PO PRN ×2 (09:48→15:01)
[2018-01-15 15:02] VITALS: BP 127/82
--- NOTE | 2018-01-20 10:57 | Physician Query-Final Dx ---
SANTHOSH PICKERING 01/20/18 1056: Final Diagnosis Give Final Diagnosis Please give Final Diagnosis ANETTE MONTENEGRO DO 01/20/18 1520: Final Diagnosis Give Final Diagnosis POD 2 RLTCS SANTHOSH PICKERING Jan 20, 2018 10:56 ANETTE MONTENEGRO DO Jan 20, 2018 15:20
== END 2018-01-15 16:15 | disposition home or self-care (01) | DRG 787 ==
LOC: LDRP 12:15 → WS 01-14 10:38
PROVIDERS: ADMIT Obstetrics & Gynecology; ATTEND Obstetrics & Gynecology
PROC: 10D00Z1 Extraction of Products of Conception, Low, Open Approach (ICD-10-PCS; principal; 2018-01-13 14:02)
DX: O34.211 Maternal care for low transverse scar from previous cesarean delivery (principal); O41.03X0 Oligohydramnios, third trimester, not applicable or unspecified; O13.3 Gestational [pregnancy-induced] hypertension without significant proteinuria, third trimester; Z3A.38 38 weeks gestation of pregnancy; Z37.0 Single live birth; Z23 Encounter for immunization
CPT/HCPCS: 36415; 85025; 86703; 86706; 86780; 86850; 86900; 86901; 88307; 90471; 90686; 90715; 94664

== ENCOUNTER 2021-12-09 09:19 | Emergency (ER) | payer MEDICAID ==
[~2021-12-09] VITALS: Ht 165.1 cm; Wt 70.3 kg
[~2021-12-09 09:19] MED LIST changes: -CITRIC ACID/SOB CIT (BICITRA) 30 ML UDC ONE; +DOCU-143 PO; -FAMOTIDINE 20MG/2ML IV (PEPCID) ONE; -LACTATED RINGERS 2,000 ML IV ONE; -METOCLOPRAMIDE INJ 10 MG/2 ML (REGLAN) ONE; -OXYC-465 PO; +OXYC-556 PO; +OXYC1TAB12 PO; -ceFAZolin 2 GM IV Premixed 50 ML ONE; -metroNIDAZOLE 500MG/100ML IVPB 100 ML ONE
[2021-12-09] MEDS ORDERED: diphenhydrAMINE 50 MG/ML INJ (BENADRYL) ONE (09:26)
[2021-12-09] MEDS ORDERED: FAMOTIDINE 20MG/2ML IV (PEPCID) ONE (09:27)
[2021-12-09] MEDS ORDERED: methylPREDNISolone 125 MG (Solu-MEDROL) VIAL ONE (09:27)
[2021-12-09] MEDS ORDERED: EPINEPHrine INJECTION 1 MG/ML AMP ONE (09:28)
[2021-12-09] MEDS ORDERED: methylPREDNISolone 125 MG (Solu-MEDROL) VIAL IV STA (09:38)
[2021-12-09] MEDS ORDERED: RT-ALBUTEROL SULF 2.5 MG/3 ML PRE-MIX VIAL INH STA (09:38)
--- NOTE | 2021-12-09 09:43 | ED General ---
General Stated Complaint: ALLERGIC REACTION - SOA Source of Information: Patient Exam Limitations: No Limitations History of Present Illness Date Seen by Provider: Dec 09, 2021 Time Seen by Provider: 09:30 Initial Comments Here with report acute onset of allergic reaction. She states that she ate a banana this morning but has not had any contact with anything else. Denies any new lotions, soaps or creams. Does report some wheezing and has erythema to her face with some swelling of her lips. Denies difficulty with swallowing. Does feel a little bit of stomach fullness and may be nausea but denies vomiting. She did take Benadryl 50 mg p.o. prior to arrival. Onset approximately 30 minutes prior to arrival. Timing/Duration: 1/2 Hour Severity: Moderate Associated Systoms: No Chest Pain, No Cough, No Fever/Chills; Nausea/Vomiting, Shortness of Air; No Weakness Allergies and Home Medications Allergies Coded Allergies: No Known Drug Allergies (Unverified , 01/08/18) Patient Home Medication List Home Medication List Reviewed: Yes Albuterol/Ipratropium (Combivent Respimat Inhal [place]) 4 Gm Aero, 2 PUFF IH NEEDED PRN for AIR HUNGER, (Reported) Entered as Reported by: SOPHY PITTMAN on 07/11/15 184 Docusate Sodium (Colace) 100 Mg Capsule, 100 MG PO BID Prescribed by: SIVAKUMAR HUITRON on 01/13/18 1405 Fluoxetine HCl (Prozac) 20 Mg Capsule, 20 MG PO DAILY, (Reported) Entered as Reported by: RICK CORCORAN on 01/08/18 1101 Hydralazine HCl (Hydralazine HCl) 25 Mg Tablet, 25 MG PO PRN PRN for ANXIETY, (Reported) Entered as Reported by: RICK CORCORAN on 01/08/18 1101 Ibuprofen (Ibuprofen) 800 Mg Tablet, 800 MG PO Q6H PRN for PAIN Prescribed by: SIVAKUMAR HUITRON on 01/13/18 1405 Oxycodone HCl/Acetaminophen (Percocet 10-325 mg Tablet) 1 Each Tablet, 1 EACH PO Q8H PRN for PAIN-MODERATE Prescribed by: SIVAKUMAR HUITRON on 01/13/18 1405 Vit W-Ca,Fe,FA(<1 mg) ( Formula) 1 Each Tablet, 1 EACH PO DAILY, (Reported) Entered as Reported by: RICK CORCORAN on 01/08/18 1101 Review of Systems Review of Systems Constitutional: see HPI; No chills, No fever EENTM: nose congestion, other (Throat itching) Respiratory: short of breath, wheezing Cardiovascular: no symptoms reported Gastrointestinal: nausea; No vomiting Genitourinary: no symptoms reported Musculoskeletal: no symptoms reported Skin: see HPI, change in color, rash All Other Systems Reviewed Negative Unless Noted: Yes Past Grearyg-Ihxxfy-Whsfcv Hx Patient Social History Tobacco Use?: No Use of E-Cig and/or Vaping dev: No Substance use?: No Alcohol Use?: No Immunizations Up To Date Tetanus Booster (TDap): Unknown PED Vaccines UTD: Yes Seasonal Allergies Seasonal Allergies: Yes (HX) Past Medical History Surgeries: Yes Respiratory: Yes Asthma Cardiac: No Neurological: No Reproductive Disorders: No Female Reproductive Disorders: Denies Sexually Transmitted Disease: No HIV/AIDS: No Genitourinary: No Gastrointestinal: Yes (DURING ) Gastroesophageal Reflux Musculoskeletal: No Endocrine: No HEENT: Yes (GLASSES) Loss of Vision: Bilateral Hearing Impairment: Denies Cancer: No Psychosocial: Yes Anxiety, Depression Integumentary: No Blood Disorders: Yes (ANEMIA) Adverse Reaction/Blood Tranf: No (N/A) Family Medical History Reviewed Nursing Family Hx Patient reports no known family medical history. Physical Exam Vital Signs Vital Signs - First Documented 12/09/21 09:20 Pulse 138 Resp 16 B/P (MAP) 121/83 (96) Pulse Ox 96 O2 Delivery Room Air Capillary Refill : Height, Weight, BMI Height: 5'6.00" Weight: 234lbs. 8.0oz. 106.998225gs; 37.9 BMI Method:Stated General Appearance: No Apparent Distress, WD/WN HEENT: PERRL/EOMI, Pharyngeal Erythema, Other (Mild pharyngeal edema) Neck: Non Tender, Supple Respiratory: No Accessory Muscle Use; No Crackles; Wheezing Cardiovascular: No Murmur, Tachycardia Gastrointestinal: Non Tender, Soft Back: Normal Inspection, No Vertebral Tenderness Extremity: Normal Range of Motion, Non Tender Neurologic/Psychiatric: Alert, Oriented x3 Skin: Warm/Dry, Erythema (Throughout face with hives and mild swelling of the lips and around the eyes noted.) Progress/Results/Core Measures Suspected Sepsis SIRS Temperature: Pulse: 128 Respiratory Rate: Blood Pressure / Mean: Results/Orders My Orders Orders - GONZÁLEZ PETE MD Diphenhydramine Injection (Benadryl Inje (12/09/21 09:26) Methylprednisolone Sod Succ (Solu-Medrol (12/09/21 09:27) Famotidine Injection (Pepcid Injection) (12/09/21 09:27) Epinephrine 1 Mg Injection (Adrenalin I (12/09/21 09:28) Albuterol Pre-Mix Nebs (Rt) (Proventil (12/09/21 09:38) Methylprednisolone Sod Succ (Solu-Medrol (12/09/21 09:38) Svn Small Volume Nebulizer (12/09/21 09:38) Ed Iv/Invasive Line Start (12/09/21 09:38) Famotidine Injection (Pepcid Injection) (12/09/21 09:45) Epinephrine 1 Mg Injection (Adrenalin I (12/09/21 09:45) General/Regular (12/09/21 Lunch) Medications Given in ED Current Medications Medications Dose Ordered Sig/Clarissa Route Start Time Stop Time Status Last Admin Dose Admin Epinephrine HCl 1 mg STK-MED ONCE .ROUTE 12/09/21 09:28 12/09/21 09:31 DC 12/09/21 09:35 0.3 MG Famotidine 20 mg STK-MED ONCE .ROUTE 12/09/21 09:27 12/09/21 09:31 DC 12/09/21 09:34 20 MG Methylprednisolone Sodium Succinate 125 mg STK-MED ONCE .ROUTE 12/09/21 09:27 12/09/21 09:31 DC 12/09/21 09:34 125 MG Vital Signs/I&O 12/09/21 12/09/21 12/09/21 09:20 09:35 09:54 Pulse 138 128 Resp 16 B/P (MAP) 121/83 (96) Pulse Ox 96 97 O2 Delivery Room Air Capillary Refill : Progress Note : Progress Note Seen and evaluated. IV ordered. Epinephrine 0.3 mg IM, Solu-Medrol 125 mg IV and Pepcid 20 mg IV ordered. Placed on campus monitor. Patient informed of monitoring. For 4 hours. Monitor patient. 1025: Redness of the face has resolved but she still has some mild swelling around the eyes. Otherwise doing better. Monitor patient. 1200: Patient is still much better and in fact better than on previous check. She is resting peacefully without distress. She has near complete resolution of symptoms with only mild eye swelling remaining.1309: Patient essentially resolved now. She does admit to using a new face lotion this morning in the shower and this may be what precipitated the anaphylactic reaction. She does have history of anaphylaxis in her family with her sister. She is familiar with the use of EpiPen. I will prescribe that as outpatient and we did discuss outpatient [id number] treatment with diphenhydramine and famotidine as well. She has tolerated meal without difficulty. We will discharge at 1330. Critical Care Note Critical Care Start Time: 09:30 Stop Time: 13:30 Total Time (minutes) 30 Departure Impression Primary Impression: Anaphylactic reaction Qualified Codes: T78.2XXA - Anaphylactic shock, unspecified, initial encounter Disposition: HOME, SELF-CARE Condition: Improved Departure-Patient Inst. Decision time for Depature: 13:11 Referrals: NO,LOCAL PHYSICIAN (PCP/Family) Primary Care Physician Patient Instructions: Anaphylaxis (DC), Epinephrine Autoinjectors Add. Discharge Instructions: Take medications as directed. Follow-up with your doctor for recheck and further evaluation. We will use a short course of steroids to ensure no return of symptoms. You may initiate those today. Return for swelling, weakness, breathing problems, nausea, vomiting, return of hives or other concerns as needed. You should carry [id number] Benadryl/diphenhydramine 2 tablets and [id number] Pepcid/famotidine 1 tablet with you and take at onset of anaphylactic symptoms. You may also take Pepcid/famotidine 20 mg daily for the next few days as needed as well. You may take [id number] diphenhydramine/Benadryl 25 mg every 4-6 hours as needed for itching as well. Scripts Prednisone (Prednisone) 20 Mg Tab 40 MG PO DAILY, #6 TAB 0 Refills Prov: GONZÁLEZ PETE MD 12/09/21 Epinephrine (Symjepi) 0.3 Mg/0.3 Ml Syringe 0.3 MG IJ UD, #1 EA 1 Refill Use 1 for anaphylactic symptoms per package directions Prov: GONZÁLEZ PETE MD 12/09/21 GONZÁLEZ PETE MD Dec 09, 2021 09:43
[2021-12-09] MEDS ORDERED: EPINEPHrine INJECTION 1 MG/ML AMP IM ONE (09:45)
[2021-12-09] MEDS ORDERED: FAMOTIDINE 20MG/2ML IV (PEPCID) IVP ONE (09:45)
[2021-12-09] MEDS ORDERED: PRD20T PO (13:16)
[2021-12-09] MEDS ORDERED: EPIN0.3S IJ (13:16)
[2021-12-09 13:35] VITALS: BP 120/89
== END 2021-12-09 13:35 | disposition home or self-care (01) ==
LOC: EDUNIT# 09:19 → ER 09:21
DX: T78.2XXA Anaphylactic shock, unspecified, initial encounter (principal)